=== PATIENT | female | born 1995 | race Caucasian/White ===

== ENCOUNTER 2018-11-14 15:13 | Emergency (ER) | payer MEDICAID ==
[~2018-11-14] VITALS: Ht 152.4 cm; Wt 69.9 kg
[~2018-11-14 15:13] MED LIST: ACET500C5 PO; AUG875 PO; CIPR500T4 PO
[2018-11-14 15:33] VITALS: Ht 152.4 cm; Wt 69.9 kg
--- NOTE | 2018-11-14 16:46 | ERD ---
ER Documentation Chief Complaint Chief Complaint pt bib family with c/o vag bleeding starting today, 16 wks preg, tooth pain HPI 23-year-old female, presents to the emergency department complaining of vaginal bleeding for 1 day. The patient is . At EGA 16 weeks by LMP 06/17/18. The patient has established care with. The patient is also complaining of sore throat and left upper molar pain. She denies fevers or chills, no abdo vamsi pain, no dysuria, no diarrhea or constipation. ROS All systems reviewed and are negative except as per history of present illness. Medications Home Meds Active Scripts Acetaminophen* (Tylenol*) 325 Mg Tablet, 2 TAB PO Q6 PRN for PAIN AND OR ELEVATED TEMP, #20 TAB Prov:HITESH BAIRD MD 11/14/18 Cephalexin* (Keflex*) 500 Mg Capsule, 500 MG PO QID for 7 Days, CAP Prov:HITESH BAIRD MD 11/14/18 Amoxicillin-Clavulanate K* (Augmentin*) 875 Mg Tab, 875 MG PO BID for 10 Days Prov:ROMARIO FLORENCE PA-C 04/06/15 Acetaminophen* (Tylophen*) 500 Mg Capsule, 1 CAP PO Q6H PRN for FEVER, #30 CAP Prov:ROMARIO FLORENCE PA-C 04/06/15 Ciprofloxacin Hcl* (Ciprofloxacin Hcl*) 500 Mg Tablet, 500 MG PO BID for 7 Days, TAB Prov:KIANNA HALE MD 03/01/15 Allergies Allergies: Coded Allergies: No Known Drug Allergy (Verified Allergy, Mild, 02/25/15) PMhx/Soc Medical and Surgical Hx: pt denies Medical Hx, pt denies Surgical Hx History of Surgery: No Anesthesia Reaction: No Hx Neurological Disorder: No Hx Respiratory Disorders: No Hx Cardiac Disorders: No Hx Psychiatric Problems: No Hx Miscellaneous Medical Probl: No Hx Alcohol Use: No Hx Substance Use: No Hx Tobacco Use: No Smoking Status: Never smoker FmHx Family History: No diabetes, No coronary disease Physical Exam Vitals Vital Signs Date Temp Pulse Resp B/P (MAP) Pulse Ox O2 O2 Flow FiO2 Time Delivery Rate 11/14/18 99.3 67 16 120/76 98 Room Air 18:34 (91) 11/14/18 100.2 103 16 129/70 100 15:33 (89) Physical Exam Const: Mild distress due to pain Head: Atraumatic Eyes: Normal Conjunctiva ENT: Normal External Ears, Nose and Mouth. Neck: Full range of motion. No meningismus. Resp: Clear to auscultation bilaterally Cardio: Regular rate and rhythm, no murmurs Abd: Soft, non tender, non distended. Normal bowel sounds Skin: No petechiae or rashes Back: No midline or flank tenderness Ext: No cyanosis, or edema Neur: Awake and alert Psych: Normal Mood and Affect Results 24 hrs Laboratory Tests Test 11/14/18 17:12 Bedside Urine pH (LAB) 7.0 Bedside Urine Protein (LAB) Trace Bedside Urine Glucose (UA) Negative Bedside Urine Ketones (LAB) Negative Bedside Urine Blood Negative Bedside Urine Nitrite (LAB) Positive Bedside Urine Leukocyte Esterase (L Trace Current Medications Medications Dose Sig/Julia Start Time Status Last (Trade) Ordered Route PRN Stop Time Admin Dose Reason Admin 650 mg ONCE ONCE 11/14/18 DC 11/14/18 Acetaminophen PO 17:00 17:04 (Tylenol 11/14/18 17:01 Tab) DIAGNOSTIC IMAGING REPORT Patient: ANGELIKA ESTES : 1995 Age: 23 Sex: F MR #: [id number] DOS: 11/14/18 165 Ordering MD: HITESH BAIRD MD [facility] Room/Bed: PROCEDURE: US OB CLINICAL INDICATION: . Evaluate size and dates. Vaginal spotting. TECHNIQUE: Multiple transabdominal sonographic images of the pelvis and gravid uterus were obtained. The images were reviewed on a PACS workstation. COMPARISON: No prior studies are available for comparison. FINDINGS: Cervix: Length: 3.1 cm. Closed. Gestation: Single live intrauterine gestation. Cardiac activity: 159 beats per minute. Presentation: Vertex. Placenta: Location: Anterior. Appearance: No previa. Ill-defined heterogeneity posterior to the placenta. Vascularity is noted in this material. Measurements: BPD = 3.3 cm, 16 weeks 1 day HC = 12.2 cm, 16 weeks 1 day AC = 10.7 cm, 15 weeks 4 days FL = 1.9 cm, 10 weeks 5 days Gestational Age: AUA estimated gestational age: 16 weeks 1 days LMP estimated gestational age: 16 weeks 0 days AUA estimated date of delivery: April 30, 2019 The EFW = 147.3 g, 52.7 %ile based on LMP age. Right ovary measures 3 x 5 by 1.7 x 2.4 cm. Normal vascularity is noted in the right ovary. The left ovaries not well visualized. IMPRESSION: 1. Single live intrauterine gestation of 16 weeks 1 days by ultrasound criteria. 2. Estimated date of delivery of April 30, 2019. 3. Ill-defined heterogeneity posterior to the placenta. This could reflect focal uterine contraction versus focal uterine fibroid or possibly a retroplacental hematoma. Close continued follow-up to assess stability is recommended. 4. Left ovary not well visualized. If characterization of this structure is needed repeat exam is recommended. RPTAT: AA .Prakash Garcia MD, MD Date Time Electronically viewed and signed by .Prakash Garcia MD, on 11/14/2018 18:04 Procedures/MDM Vital signs stable, Physical exam unremarkable. Differential diagnosis include but not limited to: UTI, threatening , incomplete versus complete , ectopic , physiologic implantation bleeding, molar . Physical examination and clinical presentation most likely consistent with UTI without pyelonephritis, dental caries and subchorionic hematoma most likely the cause of the bleeding in a 16 weeks . During the ED course the patient remained hemodynamically stable and asymptomatic. Results and clinical impression discussed with patient who agrees with managem ent. The patient is stable to be treated outpatient and will be discharged home with close monitoring and follow-up in 2 days with her primary physician. Bed rest and pelvic rest recommended until further medical evaluation. The patient was instructed regarding the outcomes and the potential complications like severe bleeding and . If the patient presents severe bleeding or pain, she was instructed to return to the hospital immediately. Disclaimer: Inadvertent spelling and grammatical errors are likely due to EHR/dictation software use and do not reflect on the overall quality of patient care. Also, please note that the electronic time recorded on this note does not necessarily reflect the actual time of the patient encounter. Departure Diagnosis: Primary Impression: Vaginal bleeding in patient at less than 20 weeks gestation Additional Impressions: Pain due to dental caries UTI (urinary tract infection) Encounter type: initial encounter Condition: Stable Additional Instructions: Thank you very much for allowing us to participate in your care. Your health and safety is our top priority at [facility]. Call your primary care doctor TOMORROW for an appointment during the next 2-4 days and bring all the information and medications prescribed. Have prescriptions filled and follow precisely the directions on the label. If the symptoms get worse and your provider is unavailable, return to the Emergency Department immediately. HITESH BAIRD MD Nov 14, 2018 16:46
[2018-11-14] MEDS ORDERED: ACETAMINOPHEN 325 MG TAB PO ONE (17:00)
[2018-11-14] MEDS ORDERED: CEPH-443 PO (18:18)
[2018-11-14] MEDS ORDERED: ACET325T33 PO (18:18)
[2018-11-14 18:34] VITALS: BP 120/76; PULSE 67; RESP 16
== END 2018-11-14 18:34 | disposition home or self-care (01) ==
LOC: FTE 15:13
DX: O20.9 Hemorrhage in early pregnancy, unspecified (principal); O23.42 Unspecified infection of urinary tract in pregnancy, second trimester; O99.612 Diseases of the digestive system complicating pregnancy, second trimester; K02.9 Dental caries, unspecified; Z3A.16 16 weeks gestation of pregnancy
CPT/HCPCS: 76805; 81003; Z7502; Z7610